=== PATIENT | male | born 1935 | race Caucasian/White ===

== ENCOUNTER → 2021-07-30 | Outpatient (CLI) | payer OTHER ==
[~2021-07-30] MED LIST: BENAZEPRIL HCL5 MG PO; CARBIDOPA-LEVO1 EAC6 PO; CILOSTAZOL50 MG PO; GLIMEPIRIDE4 MG PO; JANUVIA50 MG PO; LEVAQUIN500 MG PO; LEVOTHYROXINE50 MCG PO; METOPROLOL TART50 MG PO; NITROGLYCERIN0.4 MG SL; PRADAXA 150 MG150 MG PO; PRAVASTATIN SOD80 MG PO; VITAMIN D31000 UNIT PO
[2021-07-30 10:51] LABS: BUN/CREATININE RATIO 17 (0-10)
[2021-07-31 10:15] LABS: CREATININE, URINE 84.8 mg/dL (Not Estab.)
== END ==
LOC: LAB 09:38
PROVIDERS: Family Medicine
DX: E03.9 Hypothyroidism, unspecified (principal); E78.5 Hyperlipidemia, unspecified; I10 Essential (primary) hypertension; E11.9 Type 2 diabetes mellitus without complications; E55.9 Vitamin D deficiency, unspecified; M10.9 Gout, unspecified
CPT/HCPCS: 36415; 80053; 80061; 82043; 82570; 83735; 84439; 84443; 84550

== ENCOUNTER → 2021-11-06 | Outpatient (CLI) | payer OTHER | LOC: EXRD 10:06 | DX: J20.9 Acute bronchitis, unspecified (principal) | CPT/HCPCS: 71046 ==